=== PATIENT | female | born 1985 | race African-American/Black ===

== ENCOUNTER 2019-02-14 19:20 | Emergency (ER) | payer MEDICAID ==
[~2019-02-14] VITALS: Ht 167.6 cm; Wt 81.6 kg
[2019-02-14 19:43] VITALS: BP 125/84
[2019-02-14] MEDS ORDERED: LORazepam 0.5 MG TAB PO ONE (23:15)
== END 2019-02-14 23:45 | disposition home or self-care (01) ==
LOC: EDBD 19:20 → ER 19:24
DX: K14.8 Other diseases of tongue (principal); F17.210 Nicotine dependence, cigarettes, uncomplicated